=== PATIENT | female | born 2000 | race Caucasian/White ===

== ENCOUNTER 2022-02-20 12:48 | Emergency (ER) | payer OTHER ==
[2022-02-20 14:19] LABS: HEMOGLOBIN 12.3 gm/dl (12.3-15.3); RED BLOOD COUNT 4.35 M/UL (4.00-5.10); WHITE BLOOD COUNT 9.2 K/UL (4.5-11.0)
[2022-02-20 15:29] LABS: BUN/CREATININE RATIO 10 (0-10)
[2022-02-20] MEDS ORDERED: MACROBID 100 M100 M1 PO (16:14)
[2022-02-20] MEDS ORDERED: ZOFRAN ODT 4 MG4 MG SL (16:14)
== END 2022-02-20 16:29 | disposition home or self-care (01) ==
LOC: ER1 12:48
PROVIDERS: Physician Assistant
DX: O23.41 Unspecified infection of urinary tract in pregnancy, first trimester (principal); N39.0 Urinary tract infection, site not specified; Z3A.09 9 weeks gestation of pregnancy; Z88.1 Allergy status to other antibiotic agents
CPT/HCPCS: 80053; 81001; 85025; 87086; 96361; 96374; 99283; J2405